=== PATIENT | male | born 1995 | race Two or more races ===

== ENCOUNTER 2021-11-20 22:20 | Emergency (ER) | payer SELFPAY ==
[~2021-11-20] VITALS: Ht 180.3 cm; Wt 77.3 kg
[2021-11-21] MEDS ORDERED: IBUPROFEN 600 MG TABLET PO ONE (01:30)
[2021-11-21] MEDS ORDERED: OxyCODONE HCL/ACETAMINOPHEN 5-325 MG TABLET PO ONE (01:30)
[2021-11-21] MEDS ORDERED: OxyCODONE HCL/ACETAMINOPHEN 10-325 MG TABLET PO ONE (01:30)
[2021-11-21] MEDS ORDERED: OXYC-38 PO (01:56)
[2021-11-21 02:23] VITALS: BP 117/62
== END 2021-11-21 02:25 | disposition home or self-care (01) ==
LOC: EMS 22:23 → EDBD 22:23 → EMS 11-21 02:25
DX: S42.92XA Fracture of left shoulder girdle, part unspecified, initial encounter for closed fracture (principal); S20.20XA Contusion of thorax, unspecified, initial encounter; S20.211A Contusion of right front wall of thorax, initial encounter; F12.90 Cannabis use, unspecified, uncomplicated; F17.210 Nicotine dependence, cigarettes, uncomplicated; Z96.651 Presence of right artificial knee joint; V18.0XXA Pedal cycle driver injured in noncollision transport accident in nontraffic accident, initial encounter; Y93.55 Activity, bike riding; Y92.89 Other specified places as the place of occurrence of the external cause; Y99.8 Other external cause status
CPT/HCPCS: 71100; 99284; 73030-TC; Z7502; Z7610